=== PATIENT | male | born 1985 | race Caucasian/White ===

== ENCOUNTER 2016-06-28 11:30 | Observation (INO) | payer OTHER ==
[~2016-06-28] VITALS: Ht 190.5 cm; Wt 179.2 kg
[~2016-06-28 11:30] MED LIST: DESYREL100 MG PO; ESCITALOPRAM OX20 MG PO; FLEXERIL10 MG PO; KEFLEX500 MG PO; LISINOPRIL10 MG PO; NAPROXEN500 MG PO; NORCO 5/3251 TABLET PO; TYLENOL WITH C1 EACH PO; VENTOLIN HFA18 GM IH
[2016-06-28 11:48] LABS: BASE EXCESS -4.7 mEq/L (-3 to +3); BICARBONATE 19.7 mEq/L (22-26); CARBOXY HGB 1.8 % (0-5); METHEMOGLOBIN 0.9 % (0-1.5); PCO2 34 mm Hg (35-45); PO2 174 mm Hg (80-100); pH 7.37 (7.35-7.45)
[2016-06-28 11:49] LABS: COMMENTS - BLOOD GASES A+C+; DEVICE NRBM; O2 FLOW 15 L/MIN; SITE RR
[2016-06-28 12:11] LABS: EOSINOPHIL (%) 0.6 % (0-5); IMMATURE GRANULOCYTE (%) 0.1 % (0.0-0.7); IMMATURE GRANULOCYTE COUNT 0.1 K/uL; LYMPHOCYTE COUNT 2.2 K/uL (1.0-2.8); MCH 30.7 PG (29.0-34.0); MCHC 35.7 G/DL (30.0-36.0); MCV 86.1 FL (86-99); MONOCYTE (%) 9.5 % (3-12); MONOCYTE COUNT 0.7 K/uL (0-0.8); NEUTROPHIL (%) 59.8 % (45-76); NEUTROPHIL COUNT 4.3 K/uL (1.8-6.4); PLATELET COUNT 194 K/uL (156-360); RBC DIS.WIDTH-CV 13.2 % (11.8-14.6); RBC DIS.WIDTH-SD 41.2 % (39-53); RED BLOOD COUNT 4.88 M/uL (4.00-5.50)
[2016-06-28 12:12] LABS: WHITE BLOOD COUNT 7.2 K/uL (4.1-10.2)
[2016-06-28 12:19] LABS: AMYLASE 115 IU/L (1-118); CHLORIDE 110 mEq/L (99-109); POTASSIUM 3.6 mEq/L (3.7-5.4); SODIUM 141 mEq/L (136-147)
[2016-06-28 12:21] LABS: GLUCOSE 107 mg/dL (70-99)
[2016-06-28 12:22] LABS: ANION GAP 16 MEQ/L (2-14)
[2016-06-28 12:24] LABS: SERUM ETHYL ALCOHOL 196 mg/dL
[2016-06-28 12:25] LABS: GFR ESTIMATE (CALCULATED) > 59 mL/min/
[2016-06-28 12:26] LABS: UREA NITROGEN (BUN) 9 mg/dL (9-23)
[2016-06-28 12:28] LABS: LIPASE 288 U/L (1.0-51.0)
[2016-06-28] MEDS ORDERED: ADDERALL10 MG PO ×2 (13:02→13:52)
[2016-06-28] MEDS ORDERED: ADDERALL20 MG PO (13:02)
[2016-06-28] MEDS ORDERED: ZOLOFT50 MG PO (13:02)
[2016-06-28] MEDS ORDERED: OMEPRAZOLE10 M1 PO (13:03)
[2016-06-28 13:45] LABS: ADD MIUA? YES; BILIRUBIN NEGATIVE; BLOOD MODERATE; COLOR YELLOW ((YELLOW)); GLUCOSE (STRIP) NEGATIVE; KETONES NEGATIVE; LEUKOCYTES NEGATIVE; NITRITE NEGATIVE; PH, URINE 5.5 (5-8); PROTEIN (STRIP) 30; UROBILINOGEN 0.2 MG/DL (0.2-1.0)
[2016-06-28] MEDS ORDERED: ADDERALL XR 2020 MG PO (13:53)
[2016-06-28 13:54] LABS: BACTERIA NONE SEEN; CASTS NONE SEEN /LPF; CRYSTALS NONE SEEN; EPITHELIAL CELLS RARE; MUCUS NONE SEEN; PATHOLOGICAL CAST NONE SEEN; RED BLOOD CELLS 0-5 /HPF (0-5); SMALL ROUND CELL NONE SEEN; UCUL ADDED? NO; WHITE BLOOD CELLS 0-5 /HPF (0-5); YEAST-LIKE CELL NONE SEEN
[2016-06-28] MEDS ORDERED: LORAZEPAM0.5 MG PO (13:55)
[2016-06-28] MEDS ORDERED: FISH OIL300 MG PO (13:56)
[2016-06-28] MEDS ORDERED: MELATONIN5 MG/15 ML PO (13:56)
[2016-06-28] MEDS ORDERED: ECHINACEA167 MG PO (13:57)
[2016-06-28 13:58] LABS: ADD MEDTOX COMMENT Y; AMPHETAMINE PRESUMPTIVE POSITIVE (500 ng/mL); BARBITURATES NEGATIVE (200 ng/mL); BENZODIAZEPINES NEGATIVE (150 ng/mL); COCAINE NEGATIVE (150 ng/mL); INTERNAL CONTROLS VALID? YES; METHADONE NEGATIVE (200 ng/mL); METHAMPHETAMINE NEGATIVE (500 ng/mL); OPIATES (MORPHINE) NEGATIVE (100 ng/mL); OXYCODONE NEGATIVE (100 ng/mL); PHENCYCLIDINE NEGATIVE (25 ng/mL); PROPOXYPHENE NEGATIVE (300 ng/mL); THC CANNABINOIDS PRESUMPTIVE POSITIVE (50 ng/mL); TRICYCLIC ANTIDEPRESSANTS NEGATIVE (300 ng/mL)
[2016-06-28 14:33] VITALS: BP 114/81
== END 2016-06-28 13:43 | disposition left against medical advice (07) ==
LOC: EME 11:30 → EDOF 13:17
PROVIDERS: Emergency Medicine
DX: J70.5 Respiratory conditions due to smoke inhalation (principal); R09.02 Hypoxemia; J44.9 Chronic obstructive pulmonary disease, unspecified; I10 Essential (primary) hypertension; K21.9 Gastro-esophageal reflux disease without esophagitis; G40.909 Epilepsy, unspecified, not intractable, without status epilepticus; M19.90 Unspecified osteoarthritis, unspecified site; F90.0 Attention-deficit hyperactivity disorder, predominantly inattentive type; F17.200 Nicotine dependence, unspecified, uncomplicated; E66.01 Morbid (severe) obesity due to excess calories; Z68.42 Body mass index [BMI] 45.0-49.9, adult; Y90.6 Blood alcohol level of 120-199 mg/100 ml; Z88.0 Allergy status to penicillin; Z91.030 Bee allergy status
CPT/HCPCS: 36600; 71010; 80048; 81003; 82150; 82803; 83690; 84999; 85025; 86850; 86900; 86901; 93005; 99281; 99285; G0378; G0480; J7030

== ENCOUNTER 2016-08-28 12:48 | Emergency (ER) | payer SELFPAY ==
[~2016-08-28] VITALS: Ht 193 cm; Wt 180.7 kg
[~2016-08-28 12:48] MED LIST changes: +ADDERALL XR 2020 MG PO; +ADDERALL10 MG PO; +ADDERALL20 MG PO; +ECHINACEA167 MG PO; +FISH OIL300 MG PO; +LORAZEPAM0.5 MG PO; +MELATONIN5 MG/15 ML PO; +OMEPRAZOLE10 M1 PO; +ZOLOFT50 MG PO
[2016-08-28 16:29] VITALS: BP 169/105
== END 2016-08-28 16:30 | disposition home or self-care (01) ==
LOC: EME 12:48
DX: S92.514A Nondisplaced fracture of proximal phalanx of right lesser toe(s), initial encounter for closed fracture (principal); X50.1XXA Overexertion from prolonged static or awkward postures, initial encounter; F17.200 Nicotine dependence, unspecified, uncomplicated
CPT/HCPCS: 73630; 99281; 99283

== ENCOUNTER 2017-10-03 00:51 | Emergency (ER) | payer OTHER ==
[~2017-10-03] VITALS: Ht 193 cm; Wt 185.0 kg
[2017-10-03] MEDS ORDERED: PERCOCET 5/31 TABLET PO (03:07)
[2017-10-03] MEDS ORDERED: MOTRIN600 MG PO (03:07)
[2017-10-03] MEDS ORDERED: FLEXERIL10 MG PO (03:07)
[2017-10-03 03:35] VITALS: BP 144/98
== END 2017-10-03 03:36 | disposition home or self-care (01) ==
LOC: EME 00:51
DX: M54.5 Low back pain (principal); G89.29 Other chronic pain; W10.9XXA Fall (on) (from) unspecified stairs and steps, initial encounter; M51.36 Other intervertebral disc degeneration, lumbar region; J44.9 Chronic obstructive pulmonary disease, unspecified; I10 Essential (primary) hypertension; K21.9 Gastro-esophageal reflux disease without esophagitis; F90.9 Attention-deficit hyperactivity disorder, unspecified type; F17.200 Nicotine dependence, unspecified, uncomplicated; Z90.49 Acquired absence of other specified parts of digestive tract; Z88.0 Allergy status to penicillin; Z91.030 Bee allergy status
CPT/HCPCS: 72070; 72100; 99281; 99283; J1885

== ENCOUNTER 2017-10-14 01:31 | Emergency (ER) | payer OTHER ==
[~2017-10-14] VITALS: Ht 193 cm; Wt 185.8 kg
[~2017-10-14 01:31] MED LIST changes: +MOTRIN600 MG PO; +PERCOCET 5/31 TABLET PO
[2017-10-14] MEDS ORDERED: PERCOCET 5/31 TABLET PO (05:17)
[2017-10-14] MEDS ORDERED: MEDROL DOSEPAK4 MG PO (05:17)
[2017-10-14] MEDS ORDERED: VALIUM5 MG PO (05:17)
[2017-10-14 05:50] VITALS: BP 130/95
== END 2017-10-14 05:51 | disposition home or self-care (01) ==
LOC: EME 01:31
DX: M54.5 Low back pain (principal); W10.9XXA Fall (on) (from) unspecified stairs and steps, initial encounter
CPT/HCPCS: 99281; 99284; J7512

== ENCOUNTER 2017-11-23 09:05 | Emergency (ER) | payer OTHER ==
[~2017-11-23] VITALS: Ht 193 cm; Wt 182.5 kg
[~2017-11-23 09:05] MED LIST changes: +MEDROL DOSEPAK4 MG PO; +VALIUM5 MG PO
[2017-11-23] MEDS ORDERED: TRAMADOL HCL50 MG PO (12:00)
[2017-11-23] MEDS ORDERED: PREDNISONE50 MG PO (12:00)
[2017-11-23] MEDS ORDERED: SKELAXIN800 MG PO (12:00)
[2017-11-23 12:49] VITALS: BP 155/99
== END 2017-11-23 12:50 | disposition home or self-care (01) ==
LOC: EME 09:05
DX: M54.5 Low back pain (principal); M79.651 Pain in right thigh; R20.0 Anesthesia of skin; R10.9 Unspecified abdominal pain; R63.4 Abnormal weight loss; I10 Essential (primary) hypertension; F17.200 Nicotine dependence, unspecified, uncomplicated
CPT/HCPCS: 99281; 99283